=== PATIENT | female | born 1990 | race African-American/Black ===

== ENCOUNTER 2018-04-04 17:50 | Inpatient (IN) | payer MEDICAID | END 2018-05-18 14:47 | disposition home or self-care (01) | LOC: PCU 3S 04-16 06:35 → SUR 3N 05-01 19:04 → CICU 2S 04-06 10:22 → SUR 3N 05-01 20:32 → ICU 2S 17:50 → MED 3N 04-11 17:00 | PROC: 02UJ0JZ Supplement Tricuspid Valve with Synthetic Substitute, Open Approach (ICD-10-PCS; principal; 2018-04-06 08:11) | PROC: 5A1221Z Performance of Cardiac Output, Continuous (ICD-10-PCS; 2018-04-06 08:11) | PROC: 02L70ZK Occlusion of Left Atrial Appendage, Open Approach (ICD-10-PCS; 2018-04-06 08:11) | PROC: 5A1945Z Respiratory Ventilation, 24-96 Consecutive Hours (ICD-10-PCS; 2018-04-06 08:11) | PROC: 30233N1 Transfusion of Nonautologous Red Blood Cells into Peripheral Vein, Percutaneous Approach (ICD-10-PCS; 2018-04-06 08:11) | PROC: 0H9EXZZ Drainage of Left Lower Arm Skin, External Approach (ICD-10-PCS; 2018-04-06 08:11) | PROC: 0W9B30Z Drainage of Left Pleural Cavity with Drainage Device, Percutaneous Approach (ICD-10-PCS; 2018-04-06 08:11) | DX: A41.01 Sepsis due to Methicillin susceptible Staphylococcus aureus (principal); I26.90 Septic pulmonary embolism without acute cor pulmonale; I33.0 Acute and subacute infective endocarditis; J96.00 Acute respiratory failure, unspecified whether with hypoxia or hypercapnia; J86.9 Pyothorax without fistula; R65.21 Severe sepsis with septic shock; J18.9 Pneumonia, unspecified organism; J93.9 Pneumothorax, unspecified; N17.9 Acute kidney failure, unspecified; D62 Acute posthemorrhagic anemia; L02.414 Cutaneous abscess of left upper limb; K40.90 Unilateral inguinal hernia, without obstruction or gangrene, not specified as recurrent; I50.31 Acute diastolic (congestive) heart failure ==

== ENCOUNTER 2018-05-19 18:41 | Emergency (ER) | payer MEDICAID, OTHER ==
[~2018-05-19] VITALS: Ht 162.6 cm; Wt 49.5 kg
[~2018-05-19 18:41] MED LIST: LISI-600 PO; TRAZ-218 PO; VENL75CA61 PO
[2018-05-19] MEDS ORDERED: lisinopril 10 MG tablet PO ONE (20:55)
[2018-05-19] MEDS ORDERED: acetaminophen 325mg tablet PO ONE (20:55)
[2018-05-19] MEDS ORDERED: traZODone 50mg tablet PO ONE (20:55)
[2018-05-19 22:12] VITALS: BP 143/116
== END 2018-05-19 22:16 | disposition home or self-care (01) ==
LOC: ER 18:42
DX: T84.84XA Pain due to internal orthopedic prosthetic devices, implants and grafts, initial encounter (principal); Q67.7 Pectus carinatum; Z88.6 Allergy status to analgesic agent; Y83.8 Other surgical procedures as the cause of abnormal reaction of the patient, or of later complication, without mention of misadventure at the time of the procedure; Y92.89 Other specified places as the place of occurrence of the external cause
CPT/HCPCS: 71046; 93005; 99284